=== PATIENT | female | born 1985 | race Caucasian/White ===

== ENCOUNTER 2016-11-10 21:55 | Emergency (ER) | payer OTHER ==
[~2016-11-10 21:55] MED LIST: ACETAMINOPHEN PO; CLEOCIN HCL150 MG PO; FLAGYL PO; NO MEDICATIONS; PHENERGAN PO; PHENERGAN25 MG PO; PREDNISONE10 MG PO; PRENATAL1 TA1 PO; ROBAXIN 750750 MG PO; VICODIN 5/1 TAB 5/50 PO; ZITHROMAX PO
[2016-11-10 22:22] LABS: URINE SOURCE CLEAN CATCH
[2016-11-10 22:24] LABS: URINE APPEARANCE HAZY; URINE BILIRUBIN NEG (NEG); URINE BLOOD NEG (NEG); URINE COLOR DK YELLOW; URINE GLUCOSE NEG (NORM); URINE KETONE NEG (NEG); URINE LEUKOCYTE ESTERASE TRACE (NEG); URINE NITRATE POS (NEG); URINE PH 5.5 (5-8); URINE PROTEIN 1+ (NEG); URINE SPECIFIC GRAVITY >=1.030 (1.003-1.035)
[2016-11-10 22:28] LABS: MICRO INDICATED? YES
[2016-11-10 22:35] LABS: CULTURE INDICATED? YES; URINE BACTERIA 2+ (NEG); URINE WBC 25-50 /[HPF] (0-5)
[2016-11-10 22:36] LABS: URINE AMORPHOUS SEDIMENT AMORP URATES; URINE MUCUS PRESENT; URINE SQUAMOUS EPITHELIAL CELL FEW /[HPF]
[2016-11-10] MEDS ORDERED: BACTRIM 400-801 EACH PO (23:11)
== END 2016-11-10 23:11 | disposition home or self-care (01) ==
LOC: SED 21:55
PROVIDERS: Physician Assistant
DX: N30.00 Acute cystitis without hematuria (principal); R03.0 Elevated blood-pressure reading, without diagnosis of hypertension; I10 Essential (primary) hypertension; F17.210 Nicotine dependence, cigarettes, uncomplicated; Z98.51 Tubal ligation status; Z88.0 Allergy status to penicillin; Z88.8 Allergy status to other drugs, medicaments and biological substances; Z79.899 Other long term (current) drug therapy
CPT/HCPCS: 81003; 87086; 99283